=== PATIENT | male | born 1950 | race Caucasian/White ===

== ENCOUNTER → 2021-04-20 13:17 | Outpatient (BNVA) | payer BC, MEDICARE, SELFPAY | PROVIDERS: PCP Family Medicine; Visit Provider Specialist | DX: G20 Parkinson's disease (principal); G47.52 REM sleep behavior disorder; Z87.891 Personal history of nicotine dependence | CPT/HCPCS: 99204 ==

== ENCOUNTER → 2021-06-09 12:13 | Outpatient (BNVA) | payer BC, MEDICARE, SELFPAY | PROVIDERS: PCP Student in an Organized Health Care Education/Training Program; Visit Provider Specialist | DX: G20 Parkinson's disease (principal) | CPT/HCPCS: 99214 ==

== ENCOUNTER → 2021-08-16 07:56 | Outpatient (BNVA) | payer BC, MEDICARE, SELFPAY | PROVIDERS: PCP Student in an Organized Health Care Education/Training Program; Visit Provider Specialist | DX: M79.7 Fibromyalgia (principal); G47.52 REM sleep behavior disorder; M43.10 Spondylolisthesis, site unspecified; G20 Parkinson's disease; Z87.891 Personal history of nicotine dependence | CPT/HCPCS: 20550; 20552; 99214; J1030; J3490 ==

== ENCOUNTER 2022-03-31 08:10 | Outpatient (CLI) | payer MEDICARE, SELFPAY ==
--- NOTE | 2022-03-31 08:45 | MR_ITS ---
WS: [id number] MRI THORACIC SPINE WITHOUT CONTRAST TECHNIQUE: Sagittal T1, T2 and STIR imaging. Axial T2 imaging. Noncontrast imaging obtained. CLINICAL INFORMATION: M43.10 - Spondylolisthesis, site unspecified COMPARISON: None. FINDINGS: Mild thoracic curve. Moderate thoracic kyphosis. No acute compression fractures. RIGHT pericentral di sc osteophyte protrusion T11-T12 with moderate central canal stenosis and impingement on the thoracic cord. This impinges the RIGHT ventral thoracic cord and RIGHT subarticular recess. Small amount of c hronic myelomalacia in the cord at this level. RIGHT eccentric disc osteophyte ridging results in mil d to moderate RIGHT foraminal narrowing. LEFT foramen is patent. Moderate facet arthropathy contribut es to central canal stenosis. Slight retrolisthesis T11 on T12. Mild central canal stenosis T10-T11 with mild disc bulging in combination with facet arthropathy and ligamentum flavum hypertrophy. Mild RIGHT foraminal narrowing. Normal caliber thoracic aorta. MR/MR thoracic spin wo con* [id number] IMPRESSION: 1. Moderate central canal stenosis T11-T12 due to RIGHT pericentral disc osteo phyte protrusion in combination with slight retrolisthesis and moderate facet a rthropathy. Impingement on the RIGHT ventral thoracic cord with mild chronic my elomalacia in the thoracic cord at this level. 2. Mild to moderate RIGHT T11-T12 foraminal narrowing. 3. Mild central canal stenosis T10-T11 with mild RIGHT foraminal narrowing at this level. 4. Mild to moderate facet arthropathy in the mid and lower thoracic spine. 5. Moderate thoracic kyphosis. No acute compression fractures.
== END 2022-03-31 08:11 | disposition home or self-care (01) ==
LOC: RAD 08:11
PROVIDERS: PCP Student in an Organized Health Care Education/Training Program; Visit Provider Specialist
DX: G20 Parkinson's disease (principal); M43.10 Spondylolisthesis, site unspecified; M48.04 Spinal stenosis, thoracic region; M40.294 Other kyphosis, thoracic region; G95.89 Other specified diseases of spinal cord
CPT/HCPCS: 72146

== ENCOUNTER → 2022-05-04 08:30 | Outpatient (BNVA) | payer MEDICARE, SELFPAY | PROVIDERS: PCP Student in an Organized Health Care Education/Training Program; Visit Provider Specialist | DX: G20 Parkinson's disease (principal); G47.52 REM sleep behavior disorder; M43.14 Spondylolisthesis, thoracic region; G62.9 Polyneuropathy, unspecified; R06.09 Other forms of dyspnea | CPT/HCPCS: 99214; 99215 ==

== ENCOUNTER 2022-06-30 14:44 | Outpatient (CLI) | payer MEDICARE, SELFPAY ==
--- NOTE | 2022-06-30 15:15 | MR_ITS ---
WS: [id number] MRI LUMBAR SPINE NONCONTRAST TECHNIQUE: Sagittal T1, T2 and STIR imaging. Axial T1 and T2 imaging. CLINICAL INFORMATION: M79.7 - Fibromyalgia COMPARISON: None. FINDINGS: Mild lumbar curve. No acute compression. Moderate central canal stenosis T11-T12 with mild to moderat e RIGHT foraminal narrowing unchanged since the prior thoracic spine MRI. Suspected small nodular intrathecal nodules in the cauda equina at L3-L4 versus focal arachnoiditis. These areas measure approximately 4.5 and 6.6 mm suspicious for small schwannomas versus focal nerve root clumping. This can be further evaluated with gadolinium. Severe central canal stenosis L4-L5. L1-L2: Mild facet arthropathy. Spinal canal and foramen are patent. L2-L3: Minimal annular bulging. Moderate facet arthropathy. Spinal canal and foramen are patent. L3-L4: Mild annular bulging. Moderate facet arthropathy. Narrowing of the RIGHT subarticular recess. Mild to moderate RIGHT foraminal narrowing with slight impingement on the exiting RIGHT L3 nerve root . LEFT foramen is patent. Mild central canal stenosis. L4-L5: Slight anterolisthesis. Severe central canal stenosis. Advanced facet arthropathy ligamentum f lavum hypertrophy. Intraligament LEFT synovial cyst measuring 5 mm. Mild LEFT greater than RIGHT fora solomon narrowing. L5-S1: Disc osteophyte complex with endplate ridging. Small RIGHT subarticular protrusion impinges th e RIGHT articular recess and traversing RIGHT S1 nerve root. Moderate RIGHT foraminal narrowing impin ges the exiting RIGHT L5 nerve root. LEFT foramen is patent. Moderate facet arthropathy. Slightly ectatic infrarenal abdominal aorta measuring 2.7 x 2.6 cm MR/MR lumbar spine wo con* [id number] IMPRESSION: 1. Mild lumbar curve. No acute compression. 2. Severe central canal stenosis L4-L5 due to slight anterolisthesis in combin ation with disc bulging and facet arthropathy with ligamentum flavum hypertroph y. 3. Suggestion of small intrathecal nodules at L3-L4 versus focal nerve root cl umping/arachnoiditis. These may represent small schwannomas and could be furthe r evaluated with gadolinium. 4. Stable moderate central canal stenosis T11-T12. 5. Mild central canal stenosis L3-L4 with slight impingement on the RIGHT kofi ersing L4 nerve root. Mild to moderate RIGHT L3-L4 foraminal narrowing. 6. Mild to moderate LEFT L4-L5 foraminal narrowing. 7. Disc bulging L5-S1 with impingement on the RIGHT S1 nerve root. Moderate RI GHT L5-S1 foraminal narrowing. 8. Moderate to advanced facet arthropathy L4-L5 and L5-S1.
== END 2022-06-30 14:45 | disposition home or self-care (01) ==
LOC: RAD 14:44
PROVIDERS: PCP Student in an Organized Health Care Education/Training Program; Visit Provider Specialist
DX: M79.7 Fibromyalgia (principal); M48.061 Spinal stenosis, lumbar region without neurogenic claudication; M48.04 Spinal stenosis, thoracic region; M51.27 Other intervertebral disc displacement, lumbosacral region; M47.816 Spondylosis without myelopathy or radiculopathy, lumbar region
CPT/HCPCS: 72148

== ENCOUNTER → 2022-07-07 07:54 | Outpatient (BNVA) | payer MEDICARE, SELFPAY | PROVIDERS: PCP Student in an Organized Health Care Education/Training Program; Visit Provider Specialist | DX: G62.89 Other specified polyneuropathies (principal) | CPT/HCPCS: 95909; 95911 ==

== ENCOUNTER 2022-09-22 12:53 | Outpatient (CLI) | payer MEDICARE, SELFPAY ==
[2022-09-22] MEDS: gadobenate dimeglumine 20 mL vial IV (14:02)
--- NOTE | 2022-09-22 14:30 | MR_ITS ---
WS: [id number] MRI LUMBAR SPINE WITH AND WITHOUT CONTRAST. HISTORY: M79.7 - Fibromyalgia COMPARISON: 06/30/2022 TECHNIQUE: Sagittal and axial multisequence imaging is submitted. Sagittal and axial T1 fat sat seque nces post-MultiHance 20 cc IV. Additional post contrast imaging is submitted of the lumbar spine to correlate with the prior study f rom 06/30/2022. Post contrast imaging is submitted. The previously described nodules in the thecal sac at L3-4 do not enhance. There is thickening of the nerve roots and changes of arachnoiditis. There is very minimal enhancement along the nerve roots wh ich is probably from arachnoiditis. There are no discrete masses or nodules. The additional changes of stenosis remained the same. MR/MR lumbar spine wo/w con [id number] IMPRESSION: 1. Postcontrast imaging of the lumbar spine has been submitted to be read in c onjunction with the prior noncontrast study of 06/30/2022. 2. No enhancement within the intrathecal nodules at the L3 and L4 levels. Ther e is clumping of the nerve roots and thickening and very minimal enhancement bu t no nodularity. Findings consistent with arachnoiditis.
== END 2022-09-22 12:54 | disposition home or self-care (01) ==
PROVIDERS: PCP Student in an Organized Health Care Education/Training Program; Visit Provider Specialist
DX: M79.7 Fibromyalgia (principal)
CPT/HCPCS: 72158

== ENCOUNTER → 2023-02-07 13:46 | Outpatient (BNVA) | payer MEDICARE, SELFPAY | PROVIDERS: PCP Student in an Organized Health Care Education/Training Program; Visit Provider Specialist | DX: M48.062 Spinal stenosis, lumbar region with neurogenic claudication (principal); G47.52 REM sleep behavior disorder; G20 Parkinson's disease | CPT/HCPCS: 99214 ==

== ENCOUNTER → 2023-03-13 08:56 | Outpatient (BNVA) | payer MEDICARE, SELFPAY | PROVIDERS: PCP Student in an Organized Health Care Education/Training Program; Visit Provider Anesthesiology Pain Medicine | DX: M48.062 Spinal stenosis, lumbar region with neurogenic claudication (principal); M47.816 Spondylosis without myelopathy or radiculopathy, lumbar region; M43.16 Spondylolisthesis, lumbar region; G62.9 Polyneuropathy, unspecified | CPT/HCPCS: 99204 ==

== ENCOUNTER → 2023-03-27 12:27 | Outpatient (BNVA) | payer MEDICARE, SELFPAY | PROVIDERS: PCP Student in an Organized Health Care Education/Training Program; Visit Provider Anesthesiology Pain Medicine | DX: M54.16 Radiculopathy, lumbar region (principal); M48.062 Spinal stenosis, lumbar region with neurogenic claudication | CPT/HCPCS: 62323; J1040 ==

== ENCOUNTER → 2023-04-10 13:02 | Outpatient (BNVA) | payer MEDICARE, SELFPAY | PROVIDERS: PCP Student in an Organized Health Care Education/Training Program; Visit Provider Anesthesiology Pain Medicine | DX: M54.16 Radiculopathy, lumbar region (principal); M48.062 Spinal stenosis, lumbar region with neurogenic claudication | CPT/HCPCS: 62323; J1040 ==

== ENCOUNTER → 2023-07-04 14:09 | Outpatient (BNVA) | payer MEDICARE, SELFPAY | PROVIDERS: PCP Student in an Organized Health Care Education/Training Program; Visit Provider Specialist | DX: G20 Parkinson's disease (principal); G47.52 REM sleep behavior disorder; R06.00 Dyspnea, unspecified | CPT/HCPCS: 99213 ==

== ENCOUNTER → 2024-12-17 11:39 | Outpatient (BNVA) | payer MEDICARE, SELFPAY | PROVIDERS: PCP Student in an Organized Health Care Education/Training Program; Visit Provider Specialist | DX: G47.52 REM sleep behavior disorder (principal); R06.00 Dyspnea, unspecified; R03.0 Elevated blood-pressure reading, without diagnosis of hypertension | CPT/HCPCS: 99213 ==

== ENCOUNTER 2025-06-17 14:13 | Observation (INO) | payer MEDICARE, SELFPAY ==
[2025-06-17] VITALS (7 sets, daily range): BP systolic 92–115; BP diastolic 61–73; PULSE 76–86; RESP 17–20; TEMP 36.8; O2SAT 89–98; BMI 20.2
--- OUTSIDE RECORDS SUMMARY | 2025-06-17 14:21 | XMS_ITS | Encounter Summary ---
Author Organization [facility] Address [address] [place] [address] Care Team Providers Care Chemistry Research Assistant Name Role Phone Unavailable Primary Care Provider Unavailabl e Encounter Details Date Type Department Care Team (Latest Contact Info) Description 04/30/2024 Order Metal [place] [address] Vaibhav Gonzalez MD [address] [place] [id number] Achalasia of cardia (Primary Dx) Social History Tobacco Use Types Packs/Day Years Used Date Smoking Tobacco: Never Assessed Sex and Gender Information Value Date Recorded Sex Assigned at Not on file 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
--- OUTSIDE RECORDS SUMMARY | 2025-06-17 14:21 | XMS_ITS | Encounter Summary ---
Author Organization [facility] Address [address] [place] [address] Care Team Providers Care Pocket Marker Name Role Phone Unavailable Primary Care Provider Unavailabl e Reason for Referral * EVAL & TREAT (Routine) - Authorized Specialty Diagnoses / Procedures Referred By Dave wells Referred To Contact Gastroenterology Diagnoses Achalasia Narcisa Drake, EQUIPMENT OPERATOR WAREHOUSE [address] [place] [address] Phone: tel: fax: [facility] [address] [place] [address] Phone: tel: fax: Referral ID Status Reason Start Date Expiration Date Visits Requested Visits Authorized [id number] Authorized Specialty Services Required 03/18/2025 03/18/2026 1 1 Question Answer Additional Details General GI Clinic Encounter Details Date Type Department Care Team (Late st Contact Info) Description 03/18/2025 [place] [id number] External Referring Provider, Not In System [address] [place] [address] Achalasia (Primary Dx) Social History Tobacco Use Types Packs/Day Years Used Date Smoking Tobacco: Never Assessed Sex and Gender Information Value Date Recorded Sex Assigned at Not on file 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 Gender Identity Not on file Sexual Orientation Not on file documented as of this encounter Plan of Treatment Upcoming Encounters Date Type Department Care Team (Late st Contact Info) Description 07/23/2025 10:00 AM CDT Office Visit [facility] Clinic [address] [place] [phone] Jairon Blair MD [address] [place] [address] Scheduled Referrals Name Type Priority Associated Diagnoses Order Schedule Ambulatory Referral to Gastroenterology Outpatient Referral Routine Achalasia 1 Occurrences starting 03/18/2025 until 03/18/2026 documented as of this encounter Visit Diagnoses Diagnosis Achalasia- Primary Achalasia and cardiospasm documented in this encounter
--- OUTSIDE RECORDS SUMMARY | 2025-06-17 14:21 | XMS_ITS | Encounter Summary ---
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
--- OUTSIDE RECORDS SUMMARY | 2025-06-17 14:22 | XMS_ITS | Clinical Summary ---
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 Gender Identity Not on file Sexual Orientation Not on file Plan of Treatment Upcoming Encounters Date Type Department Care Team (Late st Contact Info) Description 07/23/2025 10:00 AM CDT Office Visit [facility]ology Clinic [address] [place] [address] Jairon Blair MD [address] [place] [address] Health Maintenance Due Date Last Done Comments COLONOSCOPY 1952 CT Colonography 1952 Colorectal Cancer Screening 1952 FIT DNA 1952 FIT 1950 Hepatitis C Screening 1950 SIGMOIDOSCOPY 1952 Depression Screening 1970 TDAP/DTaP/TD Vaccines (1 - Tdap) 1971 Lipid Panel 1992 Pneumococcal Vaccine 50+ (1 of 1 - PCV) 2002 Zoster Vaccine (1 of 2) 2002 COVID-19 Vaccine (3 - 2023-2 5 season) 2024 07/15/2021, 06/18/2021 Annual Wellness Exam 11/20/2024 Influenza Series (#1) 2025 Respiratory Syncytial Virus (RSV) Immunization - pts and pts aged 60 yrs+ (1 - 1-dose 75+ series) 2027 Hepatitis B Vaccine Aged Out No longe r eligible based on patient's age to complete this topic Meningococcal B Vaccine Aged Out No l onger eligible based on patient's age to complete this topic Insurance [employer]
--- NOTE | 2025-06-17 14:25 | XR_ITS ---
WS: [id number] PORTABLE CHEST HISTORY: dyspnea/cough COMPARISON: None available. Large RIGHT pleural effusion. Compressive atelectasis of the RIGHT lung. No midline shift. No pneumothorax. Increased consolidation in the lower RIGHT thorax. May be compressive atelectasis but mass needs to be excluded. Cardiac size: Normal. Mediastinum/Aorta: Mild atherosclerosis aorta Mild fullness inferior RIGHT paratracheal region. Adenopathy not excluded. No osseous abnormality seen. XR/XR chest 1V portable [id number] IMPRESSION: 1. Large RIGHT pleural effusion with compressive atelectasis. 2. Irregular consolidation in the RIGHT lower lung field. This may be compress xiomy atelectasis but neoplasm needs to be excluded. Recommend follow-up chest CT with IV contrast. 3. Additional RIGHT paratracheal fullness may be adenopathy.
--- NOTE | 2025-06-17 14:25 | ECG_ITS ---
[facility] Test Date: 2025-06-17 Pat Name: Nilson Mijares Department: Room: Gender: Male Train Gateman: : 1950 Requested By: Chirag Garcia Order Number: [id number] Teresa MD: Amado Amezcua M.D. Measurements Intervals [place] Rate: 81 P: 76 AR: 127 QRS: 77 QRSD: 138 T: 68 QT: 418 QTc: 488 Interpretive Statements SINUS RHYTHM POSSIBLE LEFT ATRIAL ENLARGEMENT [-0.1mV P-WAVE IN V1/V2] RIGHT BUNDLE BRANCH BLOCK [120+ ms QRS DURATION, UPRIGHT V1, 40+ ms S IN I/aVL/V4/V5/V6] No previous ECG available for comparison Electronically Signed On 06-19-2025 10:26:10 CDT by Amado Amezcua M.D. [email or web address]
[2025-06-17 14:39] LABS: Hematocrit 42.0 % (37-53); Hemoglobin 13.90 g/dL (11.27-16.99); Mean Corpuscular HGB Conc 33.1 g/dL (30-55); Mean Corpuscular Hemoglobin 29.8 pg (27-33); Mean Corpuscular Volume 90.1 fl (82-101); Nucleated Red Blood Cells % 0 %; Platelet Count 545 10^3/cmm (157-399); Red Blood Count 4.66 10^6/uL (3.85-5.65); White Blood Count 24.84 10^3/uL (3.29-11.43)
--- NOTE | 2025-06-17 14:42 | W.ED.NAVMDI ---
HPI - Nausea/Vomiting/Diarrhea General: Chief complaint: Nausea/Vomiting/Diarrhea Stated complaint: no appetite Time Seen by Provider: 06/17/25 14:25 History of Present Illness: 75-year-old male presents emergency room complaint nausea vomiting and diarrhea for appetite progressively worsening over the last several months. reports much worse over the last 3 days. Usually able to ambulate at home with a walker but he has been too weak for that. He has a difficult time swallowing. He does not have any sudden onset of weakness unilaterally. He is awake and alert he has a history of Parkinson's which has been progressing. No fever sweats or chills denies chest or abdominal pain. No hematochezia melena hematemesis or coffee-ground emesis Associated symtoms: Denies chest pain or dysuria Related Data Home Medications ?Medication ?Instructions ?Recorded ?Confirmed gabapentin 300 mg capsule 300 mg PO BID PRN nerve pain 12/17/24 06/18/25 pantoprazole 40 mg tablet,delayed 40 mg PO DAILY 12/17/24 06/18/25 release pramipexole 0.25 mg tablet 0.25 mg PO BID 12/17/24 06/18/25 donepezil 10 mg tablet 10 mg PO BEDTIME 06/17/25 06/18/25 tamsulosin 0.4 mg capsule 0.8 mg PO BEDTIME 06/17/25 06/18/25 clonazepam 2 mg tablet 2 mg PO BEDTIME 06/18/25 06/18/25 latanoprost 0.005 % eye drops 1 drp ophthalmic (eye) DAILY 06/18/25 06/18/25 meloxicam 15 mg tablet 15 mg PO DAILY 06/18/25 06/18/25 Previous Rx's ?Medication ?Instructions ?Recorded carbidopa 25 mg-levodopa 100 mg 1 tab PO TID #270 tabs 03/05/24 tablet acetaminophen 325 mg tablet 650 mg (2 x 325 mg) PO Q4H PRN 06/19/25 Temperature greater than 100.5 #30 tabs artificial tears(hypromellose) 0.5 2 drp eye-both Q2H PRN Dry Eye(S) 06/19/25 % eye drops (Tears Lubricant) #15 mL bisacodyl 10 mg rectal suppository 10 mg TX DAILY PRN Fecal Impaction 06/19/25 #30 ea lactulose 10 gram/15 mL oral 10 g (15 mL) PO DAILY PRN 06/19/25 solution (Constulose) constipation #300 mL morphine concentrate 10 mg/0.5 mL 2 - 10 mg (0.1 - 0.5 mL) 06/19/25 oral syringe (FOR ORAL USE ONLY) sublingual Q2H PRN Moderate To Severe Pain or SOB #10 ea scopolamine base 1 mg over 3 days 1 patch transdermal Q3D #10 ea 06/19/25 transdermal patch (Transderm-Scop) Allergies Allergy/AdvReac Type Severity Reaction Status Date / Time No Known Allergies Allergy Verified 06/17/25 14:22 Review of Systems Const: Denies: fever(s) or chills Card: Denies: chest pain Resp: Denies: dyspnea GI: Denies: abdominal pain : Denies: dysuria, urinary frequency or urinary urgency Musc: Denies: neck pain or back pain Skin/Breast: Denies: rash PFSH ED PFSH: Medical History Primary parkinsonism Family History Mother Hypertension Social History Smoking and tobacco/nicotine status: former use of tobacco/nicotine (quit 2000) Additional social history: 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 He wants DO NOT RESUSCITATE status and comfort care without antibiotics as discussed with myself and his Emma today on 06/17/2025 with Abe Mann MD Physical Exam Const: ORIENTATION/CONSCIOUSNESS: Yes awake, Yes oriented to person, Yes oriented to place and Yes oriented to time HENMT: COMMON NORMALS: normocephalic, atraumatic and hearing grossly normal bilaterally HEAD & SCALP: normocephalic and atraumatic Resp: COMMON NORMALS: normal respiratory effort, No retractions, No use of accessory muscles and clear to auscultation bilaterally AUSCULTATION: clear to auscultation bilaterally Cardio: COMMON NORMALS: regular rate, regular rhythm and No murmurs present (Cardio) RATE: regular rate RHYTHM: regular rhythm GI: COMMON NORMALS: Soft to palpation and No hepatosplenomegaly present AUSCULTATION: Yes normoactive bowel sounds PALPATION: Yes Soft to palpation, No Tenderness to palpation present (GI), No Guarding due to palpation present (GI) and Yes No hepatosplenomegaly present Extremity: COMMON NORMALS: normal to inspection, capillary refill normal, no clubbing, cyanosis or edema, no calf tenderness and no pedal edema Neuro: SENSORIUM/ORIENTATION: Yes oriented to person, Yes oriented to place and Yes oriented to time Skin: COMMON NORMALS: no rashes or lesions noted GENERAL SKIN EXAM: no rashes or lesions noted Course Vital Signs: Vital signs: Vital Signs Temperature 97.8 F 06/19/25 15:52 Pulse Rate 72 06/19/25 15:52 Respiratory Rate 16 06/19/25 15:52 Blood Pressure 126/68 06/19/25 15:52 Pulse Oximetry 89 L 06/19/25 15:57 Oxygen Delivery Me thod Nasal Cannula 06/19/25 07:47 Oxygen Flow Rate 2 06/18/25 23:58 MDM - Nausea/Vomiting/Diarrhea Medical Decision Making Chest x-ray was concerning for neoplasm on the CT very complicated read there appears to be an implied esophageal tear on her effusions with air-fluid levels that either connect with the bronchial tree or the esophagus I suspected the esophageal tear was not discretely identified. Reviewed findings with the patient discussed Dr. Mann he had extensive discussion ultimately patient was admitted with Dr. Mann as the attending patient is not interested in aggressive treatments at this time. Initial antibiotics started. Patient and his are discussing hospice. Medical Records I reviewed the patient's medical records. Lab Data I reviewed the patient's lab results. 06/17/25 14:30 06/17/25 14:30 Radiology Impressions Chest X-Ray 06/17/25 14:25 IMPRESSION: 1. Large RIGHT pleural effusion with compressive atelectasis. 2. Irregular consolidation in the RIGHT lower lung field. This may be compressive atelectasis but neoplasm needs to be excluded. Recommend follow-up chest CT with IV contrast. 3. Additional RIGHT paratracheal fullness may be adenopathy. Head CT 06/17/25 14:54 IMPRESSION: 1. Right-sided paranasal sinus inflammation. 2. Old lacunar infarction, right centrum semiovale. Diffuse parenchymal volume loss and microangiopathic white matter changes. 3. No evidence of acute brain parenchymal pathology. Chest CTA 06/17/25 16:23 IMPRESSION: 1. Distended esophagus with fluid and air, fluid and an air-fluid level in the anterior mediastinum, and large right pleural effusion with nearly complete collapse of the right lung. Mediastinal air-fluid level implies communication either with bronchial tree or esophagus. Given the esophageal distension, an esophageal perforation is suspected but not discretely identified. The large right pleural effusion may also be secondary to this process. 2. Several small bubbles of gas in the right supraclavicular region there felt to be within the right subclavian vein and related to the IV contrast injection. ADDENDUM: 06/17/25 1811 THIS REPORT CONTAINS FINDINGS THAT MAY BE CRITICAL TO PATIENT CARE. The findings were verbally communicated via telephone conference at 5:58 PM CDT on 06/17/2025 with CHIRAG GARCIA. The findings were acknowledged and understood. Laboratory Results WBC 24.84 10^3/uL (3.29-11.43) H 06/17/25 14:30 RBC 4.66 10^6/uL (3.85-5.65) 06/17/25 14:30 Hgb 13.90 g/dL (11.27-16.99) 06/17/25 14:30 Hct 42.0 % (37-53) 06/17/25 14:30 MCV 90.1 fl (82-101) 06/17/25 14:30 MCH 29.8 pg (27-33) 06/17/25 14:30 MCHC 33.1 g/dL (30-55) 06/17/25 14:30 RDW 14.5 % (12.1-15.1) 06/17/25 14:30 Plt Count 545 10^3/cmm (157-399) H 06/17/25 14:30 MPV 9.7 fL (7.4-10.4) 06/17/25 14:30 Neut % (Auto) 91.4 % 06/17/25 14:30 Lymph % (Auto) 2.5 % 06/17/25 14:30 [place] % (Auto) 4.7 % 06/17/25 14:30 Eos % (Auto) 0.0 % 06/17/25 14:30 Baso % (Auto) 0.3 % 06/17/25 14:30 Neut # (Auto) 22.68 10^3/uL (1.8-7.7) H 06/17/25 14:30 Lymph # (Auto) 0.6 10^3/uL (0.8-4.8) L 06/17/25 14:30 [place] # (Auto) 1.2 10^3/uL (0.2-0.9) H 06/17/25 14:30 Eos # (Auto) 0.0 10^3/uL (0.0-0.8) 06/17/25 14:30 Baso # (Auto) 0.1 10^3/uL (0.0-0.1) 06/17/25 14:30 Nucleated RBC % (auto) 0 % 06/17/25 14:30 Nucleated RBCs # 0.0 /100WBC 06/17/25 14:30 Sodium 136 mmol/L (136-145) 06/17/25 14:30 Potassium 4.6 mmol/L (3.5-5.1) 06/17/25 14:30 Chloride 92 mmol/L (98-107) L 06/17/25 14:30 Carbon Dioxide 31 mmol/L (22-29) H 06/17/25 14:30 Anion Gap 18.7 (5-19) 06/17/25 14:30 BUN 69 mg/dL (8-23) H 06/17/25 14:30 Creatinine 1.3 mg/dL (0.7-1.2) H 06/17/25 14:30 GFR Calculation Not Reportable 06/17/25 14:30 Glucose 203 mg/dL (65-115) H 06/17/25 14:30 Calculated Osmolality 310 mOsm/kg (285-295) H 06/17/25 14:30 Lactic Acid 1.6 mmol/L (0.5-2.2) 06/17/25 14:30 Calcium 8.7 mg/dL (8.5-10.5) 06/17/25 14:30 Total Bilirubin 0.9 mg/dL (0.15-1.2) 06/17/25 14:30 AST 20 U/L (0-40) 06/17/25 14:30 ALT 13 U/L (0-41) 06/17/25 14:30 Alkaline Phosphatase 130 U/L (40-130) 06/17/25 14:30 Creatine Kinase 21 U/L (39-308) L 06/17/25 14:30 Troponin T Baseline 19 ng/L (0-15) H 06/17/25 14:30 Troponin T 120 Minute 17.29 ng/L (0-15) H 06/17/25 16:07 Delta Troponin T -1.71 ABS# (0-10) L 06/17/25 16:07 Total Protein 6.9 g/dL (6.6-8.7) 06/17/25 14:30 Albumin 2.9 g/dL (3.5-5.2) L 06/17/25 14:30 Globulin 4.0 g/dL (1.3-4.6) 06/17/25 14:30 Lipase 8 U/L (13-60) L 06/17/25 14:30 Urine Color Dark yellow (Yellow) A 06/17/25 17:00 Urine Appearance Cloudy (CLEAR) A 06/17/25 17:00 Urine pH 5.0 (5-7) 06/17/25 17:00 Ur Specific [place] 1.025 (1.005-1.030) 06/17/25 17:00 Urine Protein 1+ (Negative) A 06/17/25 17:00 Urine Glucose (UA) Negative (Normal) 06/17/25 17:00 Urine Ketones Trace (Negative) 06/17/25 17:00 Urine Blood Negative (Negative) 06/17/25 17:00 Urine Nitrate Negative (Negative) 06/17/25 17:00 Urine Bilirubin 1+ (Negative) H 06/17/25 17:00 Urine Urobilinogen 2.0 mg/dL (Negative) H 06/17/25 17:00 Ur Leukocyte Esterase Trace (Negative) A 06/17/25 17:00 Urine RBC 3-5 /hpf (0-2) 06/17/25 17:00 Urine WBC 0-5 /hpf (0-5) 06/17/25 17:00 Ur Squamous Epith Cells 0-5 /hpf (0-5) 06/17/25 17:00 Amorphous Sediment 2+ /hpf 06/17/25 17:00 Urine Bacteria None seen /hpf (NONE) 06/17/25 17:00 Hyaline Casts 49.21 /lpf 06/17/25 17:00 Fine Granular Casts 5-10 /lpf H 06/17/25 17:00 All radiology interpretation(s) finalized by discharge Discharge Plan Discharge Patient Disposition: Admitted As Inpatient Admit Provider: Abe Mann Clinical Impression: Pleural effusion, right, Esophageal perforation, Intractable nausea and vomiting, Primary parkinsonism, Dyspnea on exertion Condition: Stable Discharge Diet: Full LIquid Discharge Activity: Resume usual activity Coding Level of Care Code ED Auth Specialist for [place]
--- NOTE | 2025-06-17 14:54 | CTR_ITS ---
PROCEDURE INFORMATION: Exam: CT Head Without Contrast Exam date and time: 06/17/2025 3:53 PM Age: 75 years old Clinical indication: Altered mental status/memory loss; Additional info: Altered mental status weakness TECHNIQUE: Imaging protocol: Computed tomography of the head without contrast. Radiation optimization: All CT scans at this facility use at least one of these dose optimization techniques: automated exposure control; mA and/or kV adjustment per patient size (includes targeted exams where dose is matched to clinical indication); or iterative reconstruction. COMPARISON: No relevant prior studies available. RADIATION DOSE METRICS: Total DLP (mGy-cm): 1141.9 FINDINGS: Brain: Mild global brain atrophy and chronic white matter ischemic changes are present. A chronic bland lacunar infarction is identified right centrum semiovale. No acute ischemic changes are seen. There is no evidence of intracranial hemorrhage or mass lesion. Cerebral ventricles: No ventriculomegaly. Paranasal sinuses: See Soft tissues finding. Mastoid air cells: Visualized mastoid air cells are well aerated. Bones: Unremarkable. No acute fracture. Soft tissues: There is moderate mucoperiosteal hypertrophy in the right maxillary sinus with an air-fluid level consistent with sinusitis. Inflammatory changes extends into the adjacent middle and posterior right ethmoid air cells and obstructs the right infundibulum. There are retained secretions within the right sphenoid sinus. Right sphenoid ostium is visibly patent. Vasculature: Atherosclerotic calcifications are noted in the proximal intracranial vertebral arteries and parasellar internal carotid arteries. CT/CT head wo con* [id number] IMPRESSION: 1. Right-sided paranasal sinus inflammation. 2. Old lacunar infarction, right centrum semiovale. Diffuse parenchymal volume loss and microangiopathic white matter changes. 3. No evidence of acute brain parenchymal pathology.
[2025-06-17 14:56] LABS: Troponin(5th) Baseline 19 ng/L (0-15)
[2025-06-17 15:00] LABS: Alanine Aminotransferase 13 U/L (0-41); Alkaline Phosphatase 130 U/L (40-130); Potassium 4.6 mmol/L (3.5-5.1); Sodium 136 mmol/L (136-145)
[2025-06-17 15:02] LABS: Albumin Level 2.9 g/dL (3.5-5.2); Anion Gap 18.7 (5-19); Aspartate Amino Transferase 20 U/L (0-40); Blood Urea Nitrogen 69 mg/dL (8-23); Calcium 8.7 mg/dL (8.5-10.5); Carbon Dioxide 31 mmol/L (22-29); Chloride 92 mmol/L (98-107); Creatinine Clr Calc Pharmacy 51.1723; Globulin 4.0 g/dL (1.3-4.6); Glucose 203 mg/dL (65-115); Lipase 8 U/L (13-60); Osmolality Calculated 310 mOsm/kg (285-295); Total Protein 6.9 g/dL (6.6-8.7)
--- NOTE | 2025-06-17 16:23 | CTR_ITS ---
PROCEDURE INFORMATION: Exam: CTA Chest With Contrast Exam date and time: 06/17/2025 5:12 PM Age: 75 years old Clinical indication: Other: Hypoxia; Additional info: Hypoxia/chest mass TECHNIQUE: Imaging protocol: Computed tomographic angiography of the chest with contrast. Exam focused on the arteries. 3D rendering (Not supervised by radiologist): MIP and/or 3D reconstructed images were created by the technologist. Radiation optimization: All CT scans at this facility use at least one of these dose optimization techniques: automated exposure control; mA and/or kV adjustment per patient size (includes targeted exams where dose is matched to clinical indication); or iterative reconstruction. Contrast material: OMNIPAQUE 350; Contrast volume: 100 ml; Contrast route: INTRAVENOUS (IV); COMPARISON: CR XR chest 1V portable [id number] 06/17/2025 2:31 PM RADIATION DOSE METRICS: Total DLP (mGy-cm): 444.01 FINDINGS: Pulmonary arteries: Normal. No pulmonary emboli. Aorta: Vasculature: Aortic atheromatous calcifications are present. There is no aneurysm or dissection.The heart size is within normal limits. There is no pericardial effusion. There are coronary artery atherosclerotic changes present. There are several bubbles of gas identified posterior to the right clavicle which are felt to be within the right subclavian vein and likely related to left IV contrast injection. Thyroid: The thyroid is normal. Lungs: Compressive atelectasis of the majority of the right lung is present. No visible pulmonary mass lesion or infiltrate is evident. Bubbly retained secretions are identified in the right mainstem bronchus (5/32). Pleural spaces: A very large right pleural effusion is identified. No left pleural effusion is seen. Heart: See Aorta finding. Esophagus: There is marked distension of the esophagus with fluid inferiorly and gas superiorly. An anterior mediastinal air-fluid level is identified (5/33) which appears to lie external to the pericardium. No pericardial effusion is observed. Lymph nodes: Unremarkable. No enlarged lymph nodes. Intraperitoneal space: No ascites is identified. The abdominal viscera unremarkable to the extent seen. Bones/joints: Unremarkable. No acute fracture. Soft tissues: See Intraperitoneal space finding. CT/CT angio chest PE protcl [id number] IMPRESSION: 1. Distended esophagus with fluid and air, fluid and an air-fluid level in the anterior mediastinum, and large right pleural effusion with nearly complete collapse of the right lung. Mediastinal air-fluid level implies communication either with bronchial tree or esophagus. Given the esophageal distension, an esophageal perforation is suspected but not discretely identified. The large right pleural effusion may also be secondary to this process. 2. Several small bubbles of gas in the right supraclavicular region there felt to be within the right subclavian vein and related to the IV contrast injection.
--- NOTE | 2025-06-17 16:30 | ECG_ITS ---
[facility] Test Date: 2025-06-17 Pat Name: Nilson Mijares Department: Room: Gender: Male Vp Integration: : 1950 Requested By: Chirag Garcia Order Number: [id number] Reading MD: MARY MENDOZA Measurements Intervals [place] Rate: 75 P: 70 AL: 134 QRS: 68 QRSD: 138 T: 62 QT: 447 QTc: 502 Interpretive Statements SINUS RHYTHM POSSIBLE LEFT ATRIAL ENLARGEMENT [-0.1mV P-WAVE IN V1/V2] RIGHT BUNDLE BRANCH BLOCK [120+ ms QRS DURATION, UPRIGHT V1, 40+ ms S IN I/aVL/V4/V5/V6] Compared to ECG 06/17/2025 14:31:22 No significant changes Electronically Signed On 06-19-2025 22:22:43 CDT by MARY MENDOZA [email or web address]
[2025-06-17 16:41] LABS: Troponin 5 2HR 17.29 ng/L (0-15); Troponin 5 2HR Delta -1.71 ABS# (0-10)
[2025-06-17 17:04] LABS: Lactic Sepsis W/Reflex 1.6 mmol/L (0.5-2.2)
[2025-06-17] MEDS: cefTRIAXone 1,000 mg SDV 1000 MG IVP (17:15)
[2025-06-17] MEDS: iohexol 350 mg/mL 500 mL Btl (per mL) IV (17:27)
[2025-06-17 17:41] LABS: Glucose Urine UA Negative (Normal); Nitrate Urine Negative (Negative); Specific Gravity, Urine 1.025 (1.005-1.030)
[2025-06-17 17:44] LABS: Add Urine Microscopic? YES
[2025-06-17 17:56] LABS: UA Slide Review UA Slide Review Perf
--- NOTE | 2025-06-17 19:48 | PM.HP ---
Providers/Chief Complaint Admitting Physician: Abe Mann MD Primary Care Provider: Mathieu Short MD Chief Complaint: no appetite History of Present Illness Nilson Mijares is a 75 year old male with history of Parkinson disease also had a history of Zenker's diverticulum operated upon 1998. He has had Parkinson's for the last 7 to 8 years he has had difficulty swallowing for about 7 years. He got used to it and so did not seek care but in the last 3 months he cannot swallow solids. He is eating equate liquid food but vomits some most the time he eats. He has had difficulty breathing and fevers and chills for a week or 2. Patient was seen at Dr. Lopez's office and conveyed that he is not able to keep food down and has lost lots of weight. He was wheeled over to the emergency department Patient is accompanied by his Emma to whom he has been 30 years. Patient is 6 foot tall and couple years ago he weighed 258 pounds now down to 145. Review of Systems Narrative: General positive for fevers chills night sweats weight loss 100 pounds in 2 years Cardiovascular no chest pain palpitations or edema Respiratory positive for cough and shortness of breath but mostly dry GI positive for odynophagia, dysphagia and vomiting no dysuria hematuria Neuro no seizure strokes Malignancy history no history of cancer Hematologic no history of clots in legs or lungs before Medications/Allergies Home Medications ?Medication ?Instructions ?Recorded ?Confirmed ?Last Taken ?Type amlodipine 10 mg tablet 10 mg PO DAILY 04/20/21 06/17/25 Unknown History prazosin 2 mg capsule 2 mg PO BID 04/20/21 06/17/25 Unknown History carbidopa 25 mg-levodopa 100 mg 1 tab PO TID #270 tabs 03/05/24 06/17/25 Unknown Rx tablet meloxicam 15 mg tablet 15 mg PO ONCE #90 tabs 09/05/24 06/17/25 Unknown Rx carbidopa 25 mg-levodopa 250 mg See Rx Instructions .Route 10/28/24 06/17/25 Unknown Rx tablet .COMPLEX #270 tabs clonazepam 1 mg tablet (Klonopin) 1 mg PO DAILY #30 tabs 12/17/24 06/17/25 Unknown Rx gabapentin 300 mg capsule 300 mg PO BID 12/17/24 06/17/25 Unknown History pantoprazole 40 mg tablet,delayed 40 mg PO DAILY 12/17/24 06/17/25 Unknown History release pramipexole 0.25 mg tablet 0.25 mg PO BID 12/17/24 06/17/25 Unknown History carbidopa 25 mg-levodopa 100 mg 1 tab PO TID #270 tabs 01/02/25 06/17/25 Unknown Rx tablet carbidopa 25 mg-levodopa 250 mg See Rx Instructions .Route 03/21/25 06/17/25 Unknown Rx tablet .COMPLEX #360 tabs donepezil 10 mg tablet 10 mg PO QDAY 06/17/25 06/17/25 Unknown History tamsulosin 0.4 mg capsule 0.8 mg PO QDAY 06/17/25 06/17/25 Unknown History Allergies Allergy/AdvReac Type Severity Reaction Status Date / Time No Known Allergies Allergy Verified 06/17/25 14:22 PFSH Acute PFSH: Medical History (Updated 06/17/25 @ 19:54 by Abe Mann MD) Primary parkinsonism Family History Mother Hypertension Social History (Updated 06/17/25 @ 19:52 by Abe Mann MD) Smoking and tobacco/nicotine status: former use of tobacco/nicotine (quit 2000) Additional social history: 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 He wants DO NOT RESUSCITATE status and comfort care without antibiotics as discussed with myself and his Emma today on 06/17/2025 with Abe Mann MD Vitals/I&O/Wt Last Vital Signs Temp 98.3 F 06/17/25 14:16 Pulse 76 06/17/25 17:00 Resp 19 H 06/17/25 17:00 BP 115/73 06/17/25 17:00 Pulse Ox 89 L 06/17/25 16:30 O2 Del Method Nasal Cannula 06/17/25 15:02 O2 Flow Rate 2 06/17/25 15:02 Weight last 48 hrs Weight 65.771 kg Physical Exam Narrative: General well-developed thin chronically ill-appearing male in no acute cardiopulmonary distress CV regular rate and rhythm Lungs good air movement left lung right lung decreased breath sounds Abdomen positive bowel tones soft Calves no tenderness cords or pretibial edema Mentation alert and orient x 3 pleasant Data 06/17/25 14:30 06/17/25 14:30 Micro: Microbiology 06/17/25 17:02 Blood Culture - Preliminary Blood SPECIMEN COLLECTED 06/17/25 16:55 Blood Culture - Preliminary Blood SPECIMEN COLLECTED A&P Assessment and plan 1. Esophageal perforation: This is a high mortality diagnosis and it is unclear how long this has been perforated. Based on his history it may have been 1 to 2 weeks. We discussed with the patient options for transfer for higher level of care. This is a difficult and prolonged course of surgery if he chooses that but he says that he does not want to choose surgery even if there is no cancer involved. He desires comfort care and does not want additional antibiotics for his pneumonia either. Dr. Connolly, myself and his have spoken with him regarding his desires and he wants comfort care 2. Pleural effusion, right: I discussed diagnostic tap of this but he states that it would not matter what the diagnosis is with the pleural fluid 3. Primary parkinsonism: Chronically on carbidopa levodopa will treat for comfort PDMP PDMP Reviewed: Not Reviewed Attestations Medical Necessity Statement*: Patient admitted to the hospital for comfort and will begin arrangements for home hospice Coding Level of Care Code 55248 Diagnoses Esophageal perforation K22.3 Pleural effusion, right J90 Primary parkinsonism G20.C Time Spent (min) 75
[2025-06-17 19:50] LABS: Respiratory Syncytial Virus Ce NEGATIVE (Negative); SARS-CoV-2 PCR NEGATIVE (Negative)
[2025-06-17] MEDS: morphine 10 mg/0.5 mL oral liq UD SUBLINGUAL (20:25)
[2025-06-18] MEDS: morphine 10 mg/0.5 mL oral liq UD SUBLINGUAL ×4 (00:34→23:30)
--- OUTSIDE RECORDS SUMMARY | 2025-06-18 07:15 | XMS_ITS | Encounter Summary ---
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
--- OUTSIDE RECORDS SUMMARY | 2025-06-18 07:15 | XMS_ITS | Patient Health Record ---
Author Organization [facility] Address [address] [place] [address] Care Team Providers Care Cook Box Filler Name Role Phone Edd Short MD Primary Care Provider Leatha Cuadra Unavailable [phone] Vaibhav Gonzalez Unavailable [phone] Migration, Provider Unavailable Unavailable Alice Cortez Unavailable [phone] Johnson Badillo Unavailable [phone] Ellen Roman Unavailable Leesa Hardy Unavailable [phone] Narcisa Drake Unavailable [phone] Allergies Allergen (clinical drug ingredient) Drug/Non Drug Allergy documented on EMR Reaction Allergy Type Onset Date Status No Known Drug Allergy Unknown Drug Allergy Active Reason For Referral Reason Achalasia Diagnosis 1 Achalasia (K22.0) Referral Organization [facility] Referring Provider First Name Narcisa Referring Provider Last Name Vidal Referring Provider Speciality Gastroente rology Referred Provider Jairon Blair Referred Provider Specialty Gastroentero logy Referral Priority Routine Medications Medication SIG (Take, Route, Frequency, Duration) Notes Start Date End Date Status Carbidopa-Levodopa 25-250 MG Tablet 1 tablet Orally Three times a day Active Claritin-D 24 Hour 10-240 MG Tablet Extended Release 24 Hour 1 tablet Orally Three times a day Unknown Pantoprazole Sodium 40 MG Tablet Delayed Release 1 tablet Orally Once a day; Duration: 30 days 02/13/2024 Unknown Tamsulosin HCl 0.4 MG Capsule 1 capsule Orally Once a day Active amLODIPine Besylate 10 MG Tablet 1 tablet Orally Once a day Active Aspirin 81 81 MG Tablet Delayed Release 1 tablet Orally Once a day Not-Taking Gabapentin 300 MG Capsule 1 capsule Orally Three times a day; Duration: 90 days Fill from previous Rx 10/07/2024 Not-Taking Vitamin D3 25 MCG (1000 UT) Tablet 1 tablet Orally Once a day Unknown Gabapentin 300 MG Capsule 1 capsule Orally TID; Duration: 30 days 11/06/2024 Not-Taking Meloxicam 15 MG Tablet 1 tablet Orally Once a day; Duration: 90 days not to exceed 1 per day fill 30 days from last 30 day refill Active Carbidopa-Levodopa ER 25-100 MG Tablet Extended Release 1 tablet as needed Orally Two times a Week Active Support Medical [facility] Unknown clonazePAM 1 MG Tablet 1 tablet Orally Once a day Active Vitamin C 1000 MG Tablet 1 tablet Orally Once a day Unknown Pramipexole Dihydrochloride 0.25 MG Tablet 1 tablet Orally Twice a day Active Donepezil HCl 10 MG Tablet 1 tablet at bedtime Orally Once a day Active Meloxicam 15 MG Tablet 1 tablet Orally Once a day; Duration: 30 days Fill from previous Rx Not-Taking Pantoprazole Sodium 40 MG Tablet Delayed Release 1 tablet 1/2 to 1 hour before morning meal Orally Once a day; Duration: 30 days 12/11/2024 Active Social History Tobacco Use: Social History Observation Description Date Details (start date - stop date) Never Smoker NA - NA Social History Drugs/Alcohol: Social Info Question Answer Notes Caffeine Intake: none Tobacco Use: Social Info Question Answer Notes Tobacco Control (Standard) Tobacco use: Nonsmoker Additional Details Category Social Info Options Details Miscellaneous: Current Employment Status Patient is on disability Drugs/Alcohol: Do you smoke marijuana? De nies Do you drink alcohol? No Migrated Social History Migrated Social History Alcoholic beverages? - No, Currently on disability? - Yes, Drug or substance abuse? - No, Involved in any legal proceedings or lawsuits? - No, Marital Status - , Nonprescription drug use? - No, Participation in detoxification or rehabilitation - No, Smoking - No, Working currently? - No Problems Problem Type SNOMED Code ICD Code Onset Dates Problem Status W/U Status Risk Notes Problem Post-traumatic stress disorder (53061729) Post-traumatic stress disorder, unspecified (F43.10) 024 Active confirmed Problem Polyneuropathy (62920798) Polyneuropathy, unspecified (G62.9) Active confirmed Problem Chronic pain syndrome (774450632) Chronic pain syndrome (G89.4) Active confirmed Problem Primary generalised osteoarthritis (025066976) Primary generalized (osteo)arthritis (M15.0) Active confirmed Problem Lumbosacral spondylosis without myelopathy (disorder) (64406299) Spondylosis without myelopathy or radiculopathy, lumbosacral region (M47.817) Active confirmed Problem Lumbosacral radiculopathy (9536153) Intervertebral disc disorders with radiculopathy, lumbosacral region (M51.17) Active confirmed Problem Lumbosacral radiculopathy (0931905) Radiculopathy, lumbosacral region (M54.17) Active confirmed Problem 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) Active confirmed Problem Acquired spondylolisthesis (506829617) Spondylolisthesis at L4-L5 level (M43.16) Active confirmed Problem Achalasia (21445234) Achalasia (K22.0) Active confirmed Problem Degeneration of lumbar intervertebral disc (34809734) Disc degeneration, lumbar (M51.36) Active confirmed Problem 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 confirmed Problem Gastroesophageal reflux disease (247781766) Gastroesophageal reflux disease, unspecified whether esophagitis present (K21.9) Active confirmed Problem Esophageal dysphagia (71030355) Esophageal dysphagia (R13.19) Active confirmed Problem Parkinson's disease (disorder) (35902113) Parkinson's disease without dyskinesia, without mention of fluctuations (G20.A1) Active confirmed Problem Achalasia of esophagus (94799652) Aperistalsis, esophagus (K22.0) Active confirmed Vital Signs Temperature 98 degrees Fahrenheit 03/05/2025 Blood pressure diastolic 60 mm Hg 03/05/2025 Oximetry 93 % 03/05/2025 Height-cm 182.88 cm 05/01/2025 Weight-kg 77.11 kg 05/01/2025 Height 72 in 05/01/2025 Blood pressure systolic 92 mm Hg 03/05/2025 Weight 170 lbs 05/01/2025 BMI 23.05 kg/m2 05/01/2025 Encounters Encounter Location Date Provider Diagnosis [facility] [address] [place] [address] 05/01/2025 Leatha Barrera Chronic pain syndrom e G89.4 ; Parkinson's disease without dyskinesia, without mention of fluctuations G20.A1 ; Drug-induced peripheral neuropathy G62.0 ; Post-traumatic stress disorder, unspecified F43.10 ; Intervertebral disc disorders with radiculopathy, lumbosacral region M51.17 ; Spondylosis without myelopathy or radiculopathy, lumbosacral region M47.817 and Anesthesia R20.0 [facility] [address] [place] [address] 02/04/2025 Leathaannemarie Barrera Chronic pain syndrom e G89.4 ; Parkinson's disease without dyskinesia, without mention of fluctuations G20.A1 ; Drug-induced peripheral neuropathy G62.0 ; Post-traumatic stress disorder, unspecified F43.10 ; Intervertebral disc disorders with radiculopathy, lumbosacral region M51.17 ; Spondylosis without myelopathy or radiculopathy, lumbosacral region M47.817 and Primary generalized (osteo)arthritis M15.0 [facility] [address] [place] [address] 11/06/2024 Leatha Bruce Chronic pain syndrom e G89.4 ; Parkinson's disease without dyskinesia, without mention of fluctuations G20.A1 ; Drug-induced peripheral neuropathy G62.0 ; Post-traumatic stress disorder, unspecified F43.10 ; Intervertebral disc disorders with radiculopathy, lumbosacral region M51.17 ; Spondylosis without myelopathy or radiculopathy, lumbosacral region M47.817 and Primary generalized (osteo)arthritis M15.0 [facility] [address] [place] [address] 10/07/2024 Johnson Badillo Chronic pain syndrom e G89.4 ; Drug-induced peripheral neuropathy G62.0 ; Parkinson's disease without dyskinesia, without mention of fluctuations G20.A1 ; Post-traumatic stress disorder, unspecified F43.10 ; Primary generalized (osteo)arthritis M15.0 ; Spondylosis without myelopathy or radiculopathy, lumbosacral region M47.817 ; Intervertebral disc disorders with radiculopathy, lumbosacral region M51.17 and Radiculopathy, lumbosacral region M54.17 [facility] [address] [facility] [facility] [place] [address] 06/19/2024 Leesa Hardy [facility] [address] [place] [address] 03/05/2025 Narcisa Drake Achalasia K22.0 and Gastroesophageal reflux disease, unspecified whether esophagitis present K21.9 [facility] [address] [facility] [place] [address] 05/22/2025 Ellen moreno Drug-induced peripheral neuropathy G62.0 [facility] [address] [place] [address] 03/11/2025 Vaibhav Gonzalez Migrated_Facility 0 0 09/15/2024 Provider Migration Migrated_Facility 0 0 09/14/2024 Provider Migration [facility] [address] [place] [address] 03/25/2025 Narcisa Drake [facility] [address] [place] [address] 01/24/2025 Vaibhav Gonzalez [facility] [address] [place] [address] 12/09/2024 Vaibhav Gonzalez Assessments Encounter Date Diagnosis (ICD Code) Assessment Notes Treatment Notes Treatment Clinical Notes Section Notes 10/07/2024 Chronic pain syndrome (ICD-10 - G89.4) I had a nice visit with the patient today regarding his chronic pain issues. He was actually supposed to see Leesa today but she was out so he was on my schedule. We discussed his interventions and it sounds like he's doing pretty well after the rhizotomies but he is having some pain into the left lower extremity which seems to be improved with the gabapentin. He just ran out of that a couple of days ago so we will restart that. He says he has plenty of the meloxicam and we will get him back in with Dr. Barrera in about a month. 10/07/2024 Drug-induced peripheral neuropathy (ICD-10 - G62.0) 11/06/2024 Chronic pain syndrome (ICD-10 - G89.4) 11/06/2024 Parkinson's disease without dyskinesia, without mention of fluctuations (ICD-10 - G20.A1) 02/04/2025 Chronic pain syndrome (ICD-10 - G89.4) 03/05/2025 Achalasia (ICD-10 - K22.0) Continued to discuss patient's need for POEM vs myotomy at a major tertiary center such as [place] or possibly [place]. The patient reports he has not been able to follow-up for further treatment due to lack of transportation. Recommend referral to [facility] for POEM vs myotomy.Contact information provided for [employer] transportation, which may be able to provide them a ride to [facility] for a fee.Also recommended possibly contacting insurance company to see if they have ways to provide patient transportation to doctors appointments.Damaris ent is requesting to wait to make referral until they know if they will be able to obtain/afford transportation to [facility]. Patient reports he will contact our clinic when he is ready for the referral to be made. Will need to send referral when patient says he is ready.Recommend colonoscopy at patient's earliest convenience. 03/05/2025 Gastroesophageal reflux disease, unspecified whether esophagitis present (ICD-10 - K21.9) 05/01/2025 Chronic pain syndrome (ICD-10 - G89.4) 05/01/2025 Parkinson's disease without dyskinesia, without mention of fluctuations (ICD-10 - G20.A1) 05/22/2025 Drug-induced peripheral neuropathy (ICD-10 - G62.0) 11/06/2024 Drug-induced peripheral neuropathy (ICD-10 - G62.0) 10/07/2024 Parkinson's disease without dyskinesia, without mention of fluctuations (ICD-10 - G20.A1) 02/04/2025 Parkinson's disease without dyskinesia, without mention of fluctuations (ICD-10 - G20.A1) 05/01/2025 Drug-induced peripheral neuropathy (ICD-10 - G62.0) 11/06/2024 Post-traumatic stress disorder, unspecified (ICD-10 - F43.10) 05/01/2025 Post-traumatic stress disorder, unspecified (ICD-10 - F43.10) 02/04/2025 Drug-induced peripheral neuropathy (ICD-10 - G62.0) 10/07/2024 Post-traumatic stress disorder, unspecified (ICD-10 - F43.10) 05/01/2025 Intervertebral disc disorders with radiculopathy, lumbosacral region (ICD-10 - M51.17) 10/07/2024 Primary generalized (osteo)arthritis (ICD-10 - M15.0) 02/04/2025 Post-traumatic stress disorder, unspecified (ICD-10 - F43.10) 11/06/2024 Intervertebral disc disorders with radiculopathy, lumbosacral region (ICD-10 - M51.17) 11/06/2024 Spondylosis without myelopathy or radiculopathy, lumbosacral region (ICD-10 - M47.817) 10/07/2024 Spondylosis without myelopathy or radiculopathy, lumbosacral region (ICD-10 - M47.817) 05/01/2025 Spondylosis without myelopathy or radiculopathy, lumbosacral region (ICD-10 - M47.817) 02/04/2025 Intervertebral disc disorders with radiculopathy, lumbosacral region (ICD-10 - M51.17) 05/01/2025 Anesthesia (ICD-10 - R20.0) 10/07/2024 Intervertebral disc disorders with radiculopathy, lumbosacral region (ICD-10 - M51.17) 11/06/2024 Primary generalized (osteo)arthritis (ICD-10 - M15.0) 02/04/2025 Spondylosis without myelopathy or radiculopathy, lumbosacral region (ICD-10 - M47.817) 02/04/2025 Primary generalized (osteo)arthritis (ICD-10 - M15.0) 10/07/2024 Radiculopathy, lumbosacral region (ICD-10 - M54.17) 10/07/2024 Other I, Cisco Walter, am scribing for Johnson Badillo. I, Johnson Badillo, personally performed the services described in this documentation , as scribed by Cisco Walter, and it is both accurate and complete. Plan Of Treatment Future Test Test Name Order Date 2 Limb NCV/EMG - 24706, [id number] 05/02/2025 Insurance Providers Payer Name Payer Address Payer Phone Subscriber Number Group Number Insured Name Patient Relationship to Insured Coverage Start Date Coverage End Date [employer] Medicare Replacement [address] [address] [place]KALYAN [place], [place] [phone] [id number] Nilson Mijares Self - patient is the insured [place] Medicare [address] [place] [id number] [id number] Nilson Mijares Self - patient is the insured Medical (General) History Medical History History ICD Code Problem:Obesity (disorder) , Status :: A ctive measles, mumps, chicken pox glaucoma High Blood Pressure hemorrhoids kidney stones sleep apnea Surgical History Surgery Date(Month/Year) Zenker Diverticulum 1998 Hernia 2002 Carpal Tunnel 2005 Hernia surgery kidney stones Hospitalization History Reason Date(Month/Year) See History
--- OUTSIDE RECORDS SUMMARY | 2025-06-18 07:15 | XMS_ITS | Encounter Summary ---
Author Organization [facility] Address [address] [place] [address] Care Team Providers Care Medical Investigator Name Role Phone Unavailable Primary Care Provider Unavailabl e Reason for Referral * EVAL & TREAT (Routine) - Authorized Specialty Diagnoses / Procedures Referred By Dave wells Referred To Contact Gastroenterology Diagnoses Achalasia Narcisa Drake, CRIME LAB ANALYST [address] [place] [address] Phone: tel: fax: [facility]ology Clinic [address] [place] [address] Phone: tel: fax: Referral ID Status Reason Start Date Expiration Date Visits Requested Visits Authorized [id number] Authorized Specialty Services Required 03/18/2025 03/18/2026 1 1 Question Answer Additional Details General GI Clinic Encounter Details Date Type Department Care Team (Late st Contact Info) Description 03/18/2025 [place] [address] External Referring Provider, Not In System [address] [place] [address] Achalasia (Primary Dx) Social History Tobacco Use Types Packs/Day Years Used Date Smoking Tobacco: Never Assessed Sex and Gender Information Value Date Recorded Sex Assigned at Not on file 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 Gender Identity Not on file Sexual Orientation Not on file documented as of this encounter Plan of Treatment Upcoming Encounters Date Type Department Care Team (Late st Contact Info) Description 07/23/2025 10:00 AM CDT Office Visit Gastroenterology Clinic [address] [place] [phone] Jairon Blair MD [address] [place] [address] Scheduled Referrals Name Type Priority Associated Diagnoses Order Schedule Ambulatory Referral to Gastroenterology Outpatient Referral Routine Achalasia 1 Occurrences starting 03/18/2025 until 03/18/2026 documented as of this encounter Visit Diagnoses Diagnosis Achalasia- Primary Achalasia and cardiospasm documented in this encounter
--- OUTSIDE RECORDS SUMMARY | 2025-06-18 07:15 | XMS_ITS | Encounter Summary ---
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
--- OUTSIDE RECORDS SUMMARY | 2025-06-18 07:15 | XMS_ITS | Clinical Summary ---
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
[2025-06-18 07:21] VITALS: BP 104/64; PULSE 71; RESP 16; TEMP 36.4; O2SAT 90
[2025-06-18 11:41] VITALS: BP 101/63; PULSE 61; RESP 15; TEMP 36.4; O2SAT 96
[2025-06-18 15:47] VITALS: BP 123/72; PULSE 70; RESP 17; TEMP 36.4; O2SAT 92
--- NOTE | 2025-06-18 18:28 | P.PN_ITS ---
Subjective 2 Subjective: 75-year-old male admitted for esophageal leak acute on chronic with right pleural effusions denies being in pain in his epigastric abdomen or chest. He states he is comfortable with the idea of comfort care and will await hospice equipment to be delivered at his home and go home tomorrow. He states he still does not want to seek higher level of care for surgery. We discussed that we suspect he has an esophageal cancer but we do not see radiographic evidence of obvious cancer in the lung or the mediastinum. Patient is pondering his options but still is sticking with comfort care plan Vitals/I&O/Wt Last Vital Signs Temp 97.5 F L 06/18/25 15:47 Pulse 70 06/18/25 15:47 Resp 17 06/18/25 15:47 BP 123/72 06/18/25 15:47 Pulse Ox 92 06/18/25 15:47 O2 Del Method Nasal Cannula 06/18/25 15:47 O2 Flow Rate 2 06/17/25 23:11 06/18/25 06/18/25 06/18/25 06:59 14:59 22:59 Intake Total 500 / 2843.13 480 / 480 Output Total 200 / 200 Balance 300 / 2643.13 480 / 480 Weight last 48 hrs Weight 71.35 kg Weight 65.771 kg Weight 71.35 kg Weight 65.771 kg Physical Exam 2 Narrative: General well-developed thin chronically ill-appearing male in no acute cardiopulmonary distress CV regular rate and rhythm Lungs good air movement left lung right lung decreased breath sounds but improved from yesterday Abdomen positive bowel tones soft Calves no tenderness cords or pretibial edema Mentation alert and orient x 3 pleasant Data 06/17/25 14:30 06/17/25 14:30 Micro: Microbiology 06/17/25 17:02 Blood Culture - Preliminary Blood NEGATIVE TO DATE 06/17/25 16:55 Blood Culture - Preliminary Blood NEGATIVE TO DATE A&P Assessment and plan 1. Esophageal perforation: This is a high mortality diagnosis and it is unclear how long this has been perforated. Based on his history it may have been 1 to 2 weeks. We discussed again options for transfer for higher level of care as an option. Patient reiterates his plan not to be in and out of hospitals having recurring or multiple procedures done. 2. Pleural effusion, right: Patient declined diagnostic tap yesterday 3. Primary parkinsonism: Patient states he has not been taking carbidopa levodopa the last few weeks because he could not swallow the tablets. We do not have liquid available I offered to have the medicine crushed for swallow and he states he is not taking any now and seems to be okay and that has not made a big difference PDMP PDMP Reviewed: Not Reviewed Attestations 2 Medical Necessity Statement*: Patient yasmeen in hospital overnight with plans for discharge home on hospice tomorrow Coding Level of Care Code Acute Code for Chg Fwd Diagnoses Esophageal perforation K22.3 Pleural effusion, right J90 Primary parkinsonism G20.C Time Spent (min) 25
[2025-06-18 19:50] VITALS: BP 106/60; PULSE 71; RESP 16; TEMP 36.9; O2SAT 93
[2025-06-18 23:58] VITALS: BP 124/71; PULSE 79; RESP 20; TEMP 36.5; O2SAT 90
[2025-06-19] MEDS: ondansetron 2 mg/ML SDV 2 mL 4 MG IVP (05:28)
[2025-06-19] MEDS: morphine 10 mg/0.5 mL oral liq UD SUBLINGUAL (05:29)
[2025-06-19 07:47] VITALS: BP 126/68; PULSE 72; RESP 16; TEMP 36.6; O2SAT 94
[2025-06-19 11:05] VITALS: BP 126/68; PULSE 72
--- NOTE | 2025-06-19 14:59 | P.DS_ITS ---
Discharge Providers Date of Admission: 06/17/25 17:29 Date of Discharge: June 19, 2025 Attending Provider at Admission: Abe Mann MD Attending Provider at Discharge: Abe Mann MD Primary Care Provider: Mahtieu Short MD Diagnoses at Discharge Discharge Diagnosis 1. Esophageal perforation: Details from hospital stay: Patient was counseled on 3 occasions for possibility of transfer to higher level of care but he declined. He had not been seeking care despite dysphagia for 7 years, inability to take solid food for 3 weeks and weight loss of 100 pounds in the last 2 years. He stated he did not want to have prolonged hospitalization, multiple procedures or surgeries and elected for comfort care and enrolled in hospice 2. Pleural effusion, right: Details from hospital stay: Not further evaluated or treated with diagnostic or therapeutic tap. Antibiotics declined 3. Primary parkinsonism: Details from hospital stay: Stable clinically but not taking his Sinemet Reason for Visit Reason for Visit: no appetite Brief History: Nilson Mijares is a 75 year old male with history of Parkinson disease also had a history of Zenker's diverticulum operated upon 1998. He has had Parkinson's for the last 7 to 8 years he has had difficulty swallowing for about 7 years. He got used to it and so did not seek care but in the last 3 months he cannot swallow solids. He is eating equate liquid food but vomits some most the time he eats. He has had difficulty breathing and fevers and chills for a week or 2. Patient was seen at Dr. Lopez's office and conveyed that he is not able to keep food down and has lost lots of weight. He was wheeled over to the emergency department Patient is accompanied by his Emma to whom he has been 30 years. Patient is 6 foot tall and couple years ago he weighed 258 pounds now down to 145. CT scan showed evidence of air-fluid level in the distended esophagus and also in the anterior mediastinum with a very large right pleural effusion and near collapse of the right lung communication with the bronchial tree or esophagus suspected consistent with esophageal perforation: This is a high mortality diagnosis and it is unclear how long this has been perforated. Based on his history it may have been 1 to 2 weeks. We discussed with the patient options for transfer for higher level of care. This is a difficult and prolonged course of surgery if he chooses that but he says that he does not want to choose surgery even if there is no cancer involved. He desires comfort care and does not want additional antibiotics for his pneumonia either. Dr. Connolly, myself and his have spoken with him regarding his desires and he wants comfort care Hospital Course Hospital Course Patient remained stable throughout his 2 days in the hospital and did not have significant chest pain fevers or respiratory distress. Admit white count was 24,000 but was not rechecked. Hospitalist rafael Tinajero was contacted and patient was enrolled with them. trailers and motor homes salesperson was at [facility] via Blood pressure was stable and he did not require his home Norvasc. Patient did not want to take his Sinemet crushed and states he had not been taking it at home so thought he would just go forego it he did not have uncomfortable appearing tremors or any difficulty with speech. He did demonstrate fullness in his esophagus and vomiting when eating but denied nausea at baseline Physical Exam Narrative: General well-developed chronically ill-appearing thin male in no acute cardiopulmonary distress CV regular rate and rhythm Lungs good air movement bilateral in the left lung and in the right lung near the spine but in the right lateral chest and lower lobe patient did have decreased breath sounds Abdomen positive bowel tones soft liver possibly mildly enlarged but there is guarding makes exam difficult patient denied pain Calves no tenderness cords pretrip edema Discharge Data Studies Completed and Pending Completed Studies During Hospitalization Category Date Time Status CT angio chest PE protcl [id number] Stat Cat Scan 06/17/25 16:[address] head wo con* [id number] Stat Cat Scan 06/17/25 14:54 Completed XR chest 1V portable [id number] Stat Exams 06/17/25 14:25 Completed Pending at discharge Category Date Time Status Blood Culture Stat Lab 06/17/25 17:02 Results Radiology Impressions Chest X-Ray 06/17/25 14:25 IMPRESSION: 1. Large RIGHT pleural effusion with compressive atelectasis. 2. Irregular consolidation in the RIGHT lower lung field. This may be compressive atelectasis but neoplasm needs to be excluded. Recommend follow-up chest CT with IV contrast. 3. Additional RIGHT paratracheal fullness may be adenopathy. Head CT 06/17/25 14:54 IMPRESSION: 1. Right-sided paranasal sinus inflammation. 2. Old lacunar infarction, right centrum semiovale. Diffuse parenchymal volume loss and microangiopathic white matter changes. 3. No evidence of acute brain parenchymal pathology. Chest CTA 06/17/25 16:23 IMPRESSION: 1. Distended esophagus with fluid and air, fluid and an air-fluid level in the anterior mediastinum, and large right pleural effusion with nearly complete collapse of the right lung. Mediastinal air-fluid level implies communication either with bronchial tree or esophagus. Given the esophageal distension, an esophageal perforation is suspected but not discretely identified. The large right pleural effusion may also be secondary to this process. 2. Several small bubbles of gas in the right supraclavicular region there felt to be within the right subclavian vein and related to the IV contrast injection. ADDENDUM: 06/17/25 1811 THIS REPORT CONTAINS FINDINGS THAT MAY BE CRITICAL TO PATIENT CARE. The findings were verbally communicated via telephone conference at 5:58 PM CDT on 06/17/2025 with MONTRELL CONNOLLY. The findings were acknowledged and understood. Laboratory Results WBC 24.84 10^3/uL (3.29-11.43) H 06/17/25 14:30 RBC 4.66 10^6/uL (3.85-5.65) 06/17/25 14:30 Hgb 13.90 g/dL (11.27-16.99) 06/17/25 14:30 Hct 42.0 % (37-53) 06/17/25 14:30 MCV 90.1 fl (82-101) 06/17/25 14:30 MCH 29.8 pg (27-33) 06/17/25 14:30 MCHC 33.1 g/dL (30-55) 06/17/25 14:30 RDW 14.5 % (12.1-15.1) 06/17/25 14:30 Plt Count 545 10^3/cmm (157-399) H 06/17/25 14:30 MPV 9.7 fL (7.4-10.4) 06/17/25 14:30 Neut % (Auto) 91.4 % 06/17/25 14:30 Lymph % (Auto) 2.5 % 06/17/25 14:30 Flagler % (Auto) 4.7 % 06/17/25 14:30 Eos % (Auto) 0.0 % 06/17/25 14:30 Baso % (Auto) 0.3 % 06/17/25 14:30 Neut # (Auto) 22.68 10^3/uL (1.8-7.7) H 06/17/25 14:30 Lymph # (Auto) 0.6 10^3/uL (0.8-4.8) L 06/17/25 14:30 Flagler # (Auto) 1.2 10^3/uL (0.2-0.9) H 06/17/25 14:30 Eos # (Auto) 0.0 10^3/uL (0.0-0.8) 06/17/25 14:30 Baso # (Auto) 0.1 10^3/uL (0.0-0.1) 06/17/25 14:30 Nucleated RBC % (auto) 0 % 06/17/25 14: Nucleated RBCs # 0.0 /100WBC 06/17/25 14:30 Sodium 136 mmol/L (136-145) 06/17/25 14:30 Potassium 4.6 mmol/L (3.5-5.1) 06/17/25 14:30 Chloride 92 mmol/L (98-107) L 06/17/25 14:30 Carbon Dioxide 31 mmol/L (22-29) H 06/17/25 14:30 Anion Gap 18.7 (5-19) 06/17/25 14:30 BUN 69 mg/dL (8-23) H 06/17/25 14:30 Creatinine 1.3 mg/dL (0.7-1.2) H 06/17/25 14:30 GFR Calculation Not Reportable 06/17/25 14:30 Glucose 203 mg/dL (65-115) H 06/17/25 14:30 Calculated Osmolality 310 mOsm/kg (285-295) H 06/17/25 14:30 Lactic Acid 1.6 mmol/L (0.5-2.2) 06/17/25 14:30 Calcium 8.7 mg/dL (8.5-10.5) 06/17/25 14:30 Total Bilirubin 0.9 mg/dL (0.15-1.2) 06/17/25 14:30 AST 20 U/L (0-40) 06/17/25 14:30 ALT 13 U/L (0-41) 06/17/25 14:30 Alkaline Phosphatase 130 U/L (40-130) 06/17/25 14:30 Creatine Kinase 21 U/L (39-308) L 06/17/25 14:30 Troponin T Baseline 19 ng/L (0-15) H 06/17/25 14:30 Troponin T 120 Minute 17.29 ng/L (0-15) H 06/17/25 16:07 Delta Troponin T -1.71 ABS# (0-10) L 06/17/25 16:07 Total Protein 6.9 g/dL (6.6-8.7) 06/17/25 14:30 Albumin 2.9 g/dL (3.5-5.2) L 06/17/25 14:30 Globulin 4.0 g/dL (1.3-4.6) 06/17/25 14:30 Lipase 8 U/L (13-60) L 06/17/25 14:30 Urine Color Dark yellow (Yellow) A 06/17/25 17:00 Urine Appearance Cloudy (CLEAR) A 06/17/25 17:00 Urine pH 5.0 (5-7) 06/17/25 17:00 Ur Specific Beeler 1.025 (1.005-1.030) 06/17/25 17:00 Urine Protein 1+ (Negative) A 06/17/25 17:00 Urine Glucose (UA) Negative (Normal) 06/17/25 17:00 Urine Ketones Trace (Negative) 06/17/25 17:00 Urine Blood Negative (Negative) 06/17/25 17:00 Urine Nitrate Negative (Negative) 06/17/25 17:00 Urine Bilirubin 1+ (Negative) H 06/17/25 17:00 Urine Urobilinogen 2.0 mg/dL (Negative) H 06/17/25 17:00 Ur Leukocyte Esterase Trace (Negative) A 06/17/25 17:00 Urine RBC 3-5 /hpf (0-2) 06/17/25 17:00 Urine WBC 0-5 /hpf (0-5) 06/17/25 17:00 Ur Squamous Epith Cells 0-5 /hpf (0-5) 06/17/25 17:00 Amorphous Sediment 2+ /hpf 06/17/25 17:00 Urine Bacteria None seen /hpf (NONE) 06/17/25 17:00 Hyaline Casts 49.21 /lpf 06/17/25 17:00 Fine Granular Casts 5-10 /lpf H 06/17/25 17:00 Influenza A (PCR) Negative (Negative) 06/17/25 17:59 Influenza Type B (PCR) Negative (Negative) 06/17/25 17:59 RSV (PCR) Negative (Negative) 06/17/25 17:59 SARS-CoV-2 (PCR) Negative (Negative) 06/17/25 17:[address] Chest: Radiologist's impression: FINDINGS: Pulmonary arteries: Normal. No pulmonary emboli. Aorta: Vasculature: Aortic atheromatous calcifications are present. There is no aneurysm or dissection.The heart size is within normal limits. There is no pericardial effusion. There are coronary artery atherosclerotic changes present. There are several bubbles of gas identified posterior to the right clavicle which are felt to be within the right subclavian vein and likely related to left IV contrast injection. Thyroid: The thyroid is normal. Lungs: Compressive atelectasis of the majority of the right lung is present. No visible pulmonary mass lesion or infiltrate is evident. Bubbly retained secretions are identified in the right mainstem bronchus (5/32). Pleural spaces: A very large right pleural effusion is identified. No left pleural effusion is seen. Heart: See Aorta finding. Esophagus: There is marked distension of the esophagus with fluid inferiorly and gas superiorly. An anterior mediastinal air-fluid level is identified (5/33) which appears to lie external to the pericardium. No pericardial effusion is observed. Lymph nodes: Unremarkable. No enlarged lymph nodes. Intraperitoneal space: No ascites is identified. The abdominal viscera unremarkable to the extent seen. Bones/joints: Unremarkable. No acute fracture. Soft tissues: See Intraperitoneal space finding. CT/CT angio chest PE protcl [id number] IMPRESSION: 1. Distended esophagus with fluid and air, fluid and an air-fluid level in the anterior mediastinum, and large right pleural effusion with nearly complete collapse of the right lung. Mediastinal air-fluid level implies communication either with bronchial tree or esophagus. Given the esophageal distension, an esophageal perforation is suspected but not discretely identified. The large right pleural effusion may also be secondary to this process. 2. Several small bubbles of gas in the right supraclavicular region there felt to be within the right subclavian vein and related to the IV contrast injection. Vitals Last Vital Signs Temp 97.8 F 06/19/25 07:47 Pulse 72 06/19/25 11:05 Resp 16 06/19/25 07:47 BP 126/68 06/19/25 11:05 Pulse Ox 94 06/19/25 07:47 O2 Del Method Nasal Cannula 06/19/25 07:47 O2 Flow Rate 2 06/18/25 23:58 Discharge Plan Discharge Patient Disposition: Home Condition: Stable Prescriptions: New bisacodyl 10 mg Suppository 10 mg DE DAILY PRN (Reason: Fecal Impaction) Qty: 30 0RF scopolamine base [Transderm-Scop] 1 mg over 3 days Patch 3 Day 1 patch transdermal Q3D Qty: 10 0RF Rx Instructions: to decrease oral secretions and dizziness morphine concentrate 10 mg/0.5 mL Syringe 2 - 10 mg sublingual Q2H PRN (Reason: Moderate To Severe Pain or SOB) Qty: 10 0RF acetaminophen 325 mg Tablet 650 mg PO Q4H PRN (Reason: Temperature greater than 100.5) Qty: 30 0RF lactulose [Constulose] 10 gram/15 mL solution 10 g PO DAILY PRN (Reason: constipation) Qty: 300 0RF Tears Lubricant Eye Drop 0.5 % Drops 2 drp eye-both Q2H PRN (Reason: Dry Eye(S)) Qty: 15 0RF Continued pantoprazole 40 mg tablet,delayed release (DR/EC) 40 mg PO DAILY pramipexole 0.25 mg tablet 0.25 mg PO BID gabapentin 300 mg capsule 300 mg PO BID PRN (Reason: nerve pain) donepezil 10 mg tablet 10 mg PO BEDTIME tamsulosin 0.4 mg capsule 0.8 mg PO BEDTIME carbidopa-levodopa 25-100 mg tablet 1 tab PO TID Qty: 270 3RF Rx Instructions: along with 25-250mg latanoprost 0.005 % drops 1 drp ophthalmic (eye) DAILY clonazepam 2 mg tablet 2 mg PO BEDTIME meloxicam 15 mg tablet 15 mg PO DAILY Discontinued amlodipine 10 mg tablet 10 mg PO DAILY ciprofloxacin HCl 500 mg tablet 500 mg PO BID carbidopa-levodopa 25-250 mg tablet 2 tab PO TID Rx Instructions: AT 3A.M. 9A.M. AND 3P.M. Along with 25-100mg Discharge Order = DC NOW: Discharge Order (Routine); Ordered 06/19/25 Ordered By: Abe Mann Referrals: Mathieu Short MD [Primary Care Provider, Unknown] - 06/27/25 3:30 pm Discharge Diet: Full LIquid Discharge Activity: Resume usual activity Patient Instructions: Esophageal Cancer (GEN), Chronic Dysphagia (IP), Opioid Safety, Patient Portal & Stefan Instructions Activity Restrictions/Additional Instructions: Follow full liquid diet as tolerated eat slowly and remain upright for food. Elevate head of bed 30 degrees when sleeping Take medications for pain as needed and follow-up with your physician for hospice care Discharge Attestations Time Spent in Discharge Care*: greater than 30 min Time Spent in Smoking Cessation: Patient is not a smoker Quality Metrics Clinical Quality Measures [ No reported AMI, CVA or VTE this stay] Coding Level of Care Code 20987 Diagnoses Esophageal perforation K22.3 Pleural effusion, right J90 Primary parkinsonism G20 Time Spent (min) 50
[2025-06-19 15:52] VITALS: BP 126/68; PULSE 72; RESP 16; TEMP 36.6; O2SAT 94
[2025-06-19 15:57] VITALS: O2SAT 89; O2SAT 92
--- NOTE | 2025-06-19 16:18 | PC.NURSE ---
Discharge Note Patient discharged to home via private vehicle accompanied by . Discharge instructions reviewed with patient and/or circulation sales representative. Mobile pharmacy medications and/or prescriptions provided. Belongings/home medications returned.
== END 2025-06-19 16:21 | disposition home or self-care (01) ==
LOC: ER 17:20 → MEDSURG 18:20
PROVIDERS: Admitting Provider Internal Medicine; Emergency Provider Family Medicine; PCP Student in an Organized Health Care Education/Training Program; Visit Provider Internal Medicine
DX: K22.3 Perforation of esophagus (principal); J90 Pleural effusion, not elsewhere classified; G20.C Parkinsonism, unspecified; K21.9 Gastro-esophageal reflux disease without esophagitis; Z87.891 Personal history of nicotine dependence
CPT/HCPCS: 36415; 70450; 71045; 71275; 80053; 81001; 82550; 83605; 83690; 84484; 85025; 87040; 87637; 93005; 94760; 96365; 96375; 99215; 99285; G0378; J0456; J0696; J2405; J7030; J7050; J9999